=== PATIENT | female | born 1955 | race African-American/Black ===

== ENCOUNTER 2018-07-14 06:21 | Emergency (ER) | payer OTHER ==
[~2018-07-14] VITALS: Ht 154.9 cm; Wt 60.0 kg
[~2018-07-14 06:21] MED LIST: ACET1TAB12 PO; ASPI-556; HYDR10TA31 PO; LISI-618; MELO-107 PO; NORT10 PO; PROP40TA7 PO
[2018-07-14] MEDS ORDERED: NORT10 PO (06:30)
[2018-07-14] MEDS ORDERED: RANI150T7 PO (06:30)
[2018-07-14] MEDS ORDERED: LOSA50TA64 PO (06:30)
[2018-07-14] MEDS ORDERED: VERA120 PO (06:30)
[2018-07-14] MEDS ORDERED: ONDANSETRON HCL 4 MG TABLET PO ONE (07:45)
[2018-07-14] MEDS ORDERED: IBUPROFEN 800 MG TABLET PO ONE (07:45)
[2018-07-14] MEDS ORDERED: DEXAMETHASONE SOD PHOS 4 MG/ML 5 ML VIAL PO ONE (07:45)
[2018-07-14 10:01] VITALS: BP 120/81
== END 2018-07-14 10:00 | disposition home or self-care (01) ==
LOC: EMS 06:21
DX: G43.909 Migraine, unspecified, not intractable, without status migrainosus (principal); K21.9 Gastro-esophageal reflux disease without esophagitis; I10 Essential (primary) hypertension; Z87.891 Personal history of nicotine dependence
CPT/HCPCS: 70450; 99284; J1100; Q0162